=== PATIENT | female | born 1980 | race Caucasian/White ===

== ENCOUNTER → 2021-09-24 10:13 | Outpatient (CLI) | payer BC, SELFPAY ==
--- NOTE | ~2021-09-24 | US_ITS ---
EXAMINATION: US soft tissue abdomen DATE: 09/24/2021 10:25 INDICATION: Acute upper quadrant mass TECHNIQUE: Multiple grayscale and Doppler ultrasound images of the region of concern at the left uppe r quadrant abdominal wall were obtained. COMPARISON: None FINDINGS/IMPRESSION: No ventral hernia or other abnormal masses or fluid collections identified at the region of concern. Reviewed, dictated and finalized at location A.
== END ==
PROVIDERS: PCP Physician Assistant; Visit Provider Physician Assistant
DX: R19.02 Left upper quadrant abdominal swelling, mass and lump (principal)
CPT/HCPCS: 76705

== ENCOUNTER → 2021-10-20 08:01 | Outpatient (CLI) | payer BC, SELFPAY ==
--- NOTE | ~2021-10-20 | CT_ITS ---
EXAMINATION: CT abdomen w con DATE: 10/20/2021 08:33 INDICATION: Left upper quadrant mass TECHNIQUE: Computed tomography (CT) of the abdomen and pelvis was performed with 100 cc Omnipaque 300 intravenous contrast. The dose-length product was 498.42 mGy-cm. Automated exposure control and iter ative reconstruction technique were employed. COMPARISON: CT dated 01/06/2013 FINDINGS: Lung bases are unremarkable. No significant pleural or pericardial effusion. No significant vascular abnormality. No lymphadenopathy. Fatty infiltration of the liver. The spleen, pancreas, adrenal glands and kidneys are unremarkable. N onobstructive bowel gas pattern. No free air or free fluid. Gallbladder is present. No left upper abd ominal abnormalities are seen. Specifically no abnormality in the area of palpable concern. IMPRESSION: 1. No acute abdominal abnormality. No findings to account for patient's symptoms. Reviewed, dictated and finalized at location A. IMPRESSION: 1. No acute abdominal abnormality. No findings to account for patient's symptom s.
== END ==
PROVIDERS: PCP Family Medicine; Visit Provider Physician Assistant
DX: R19.02 Left upper quadrant abdominal swelling, mass and lump (principal); K76.0 Fatty (change of) liver, not elsewhere classified
CPT/HCPCS: 74160; Q9967

== ENCOUNTER → 2022-05-19 10:45 | Outpatient (CLI) | payer BC, SELFPAY ==
--- NOTE | ~2022-05-19 | MM_ITS ---
EXAMINATION: MM screening marco BI w loly HISTORY: Screening TECHNIQUE: Craniocaudal and mediolateral oblique 3-D tomosynthesis images were obtained and synthetic 2-D images were generated. CAD analysis was submitted and interpreted. COMPARISON: No prior mammogram is available for comparison at this institution. BREAST PARENCHYMAL COMPOSITION: There are scattered areas of fibroglandular density. FINDINGS: There is no evidence of suspicious mass, calcification, or architectural distortion to sugg est malignancy in either breast. There has been no suspicious interval change. IMPRESSION: 1. No mammographic evidence of malignancy. 2. Recommend routine screening mammography in one year. BI-RADS Category 1: Negative Reviewed, dictated and finalized at location B. TRANSCRIBER
== END ==
PROVIDERS: PCP Family Medicine; Visit Provider Family Medicine
DX: Z12.31 Encounter for screening mammogram for malignant neoplasm of breast (principal)
CPT/HCPCS: 77063; 77067